=== PATIENT | male | born 1945 | race Caucasian/White ===

== ENCOUNTER 2025-07-06 23:31 | Inpatient (IN) | payer BC, MEDICARE, SELFPAY ==
[2025-07-06] MEDS ORDERED: Acetaminophen 325 MG TAB PO PRN (23:45)
[2025-07-06] MEDS ORDERED: Senokot S 8.6-50 MG TAB PO PRN (23:45)
[2025-07-06] MEDS ORDERED: Calcium Carbonate 500 MG ChewTAB PO PRN (23:45)
[2025-07-06] MEDS ORDERED: Guaifenesin DM 100-10/5 ML UDCUP PO PRN (23:45)
[2025-07-06 23:58] VITALS: BMI 27.0
[2025-07-07] MEDS ORDERED: Nitroglycerin 0.4 MG TAB (25 Tab Bottle) SL PRN (01:13)
[2025-07-07] MEDS: ALPRAZolam 0.25 MG TAB PO PRN (01:51)
[2025-07-07 06:18] LABS: ALT (SGPT) 20 U/L (Less than 45); AST (SGOT) 28 U/L (11-34); Albumin 3.4 g/dL (3.1-4.5); Alkaline Phosphatase 56 U/L (40-110); Anion Gap 14 mmol/L (10-20); BUN (Urea Nitrogen) 17 mg/dL (8.4-25.7); Bilirubin, Total 0.7 mg/dL (0.3-1.2); Calc. Creatinine Clearance 76 mL/min (70-130); Calcium 8.6 mg/dL (7.8-10.44); Carbon Dioxide 21 mmol/L (23-31); Chloride 104 mmol/L (98-107); Globulin 2.8 g/dL (2.4-3.5); Glucose 92 mg/dL (83-110); Potassium 4.2 mmol/L (3.5-5.1); Sodium 135 mmol/L (136-145)
[2025-07-07 06:21] LABS: #Basophils 0.04 10x3/uL (0.0-0.2); #Eosinophils 0.14 10x3/uL (0.0-0.5); #Monocytes 1.34 10x3/uL (0.0-1.1); #Neutrophils 8.29 10x3/uL (1.5-8.4); %Basophils 0.3 % (0.0-2.0); %Eosinophils 1.2 % (0.0-6.0); %Lymphocytes 13.9 % (18.0-47.0); %Monocytes 11.7 % (0.0-10.0); %Neutrophils 72.5 % (40.0-75.0); Hematocrit 42.1 % (38.8-50.0); Hemoglobin 14.5 g/dL (13.5-17.5); Mean Corpuscular Hemoglobin 33.8 pg (27.0-33.0); Mean Corpuscular Volume 98.1 fL (81.2-95.1); Platelet Count 207 10x3/uL (150-450); Red Blood Cell (RBC) Count 4.29 10x6/uL (4.32-5.72); White Blood Cell (WBC) Count 11.45 10x3/uL (3.5-10.5)
[2025-07-07 06:36] LABS: Troponin I 0.024 ng/mL (< 0.028)
[2025-07-07] MEDS: Aspirin 81 mg Enteric Coated Tablet PO SCH (08:56)
[2025-07-07] MEDS: Magnesium Oxide 400 MG TAB PO SCH (08:56)
[2025-07-07] MEDS: CO Q-10 CAPSULE 50 MG PO SCH (08:56)
[2025-07-07] MEDS: Pantoprazole 40 MG VIAL IVP SCH (08:58)
[2025-07-07] MEDS ORDERED: SIROLIMUS 1 MG PO SCH (09:00)
[2025-07-07] MEDS ORDERED: Enoxaparin 40 MG (0.4 mL) SYRINGE SC SCH (09:00)
[2025-07-07] MEDS ORDERED: Bupivacaine/Epinephrine 0.25% 30 ML VIAL ONE (13:19)
[2025-07-07] MEDS ORDERED: CEFAZOLIN 2 GM VIAL ONE (13:28)
[2025-07-07] MEDS ORDERED: PROPOFOL 20 ML ONE (13:30)
[2025-07-07] MEDS ORDERED: Rocuronium Bromide 10 MG/ML (10ML VIAL) ONE (13:30)
[2025-07-07] MEDS ORDERED: SUGAMMADEX SODIUM 200 MG/2 ML VIAL ONE ×2 (13:44→14:42)
[2025-07-07] MEDS ORDERED: Ondansetron PF 4 MG/2 ML Vial ONE ×2 (13:44→14:42)
[2025-07-07] MEDS ORDERED: PHENYLEPHRINE-NS 100 MCG/ML 10 ML SYRINGE ONE (14:02)
[2025-07-07] MEDS ORDERED: HYDROmorphone 0.5 MG/0.5 ML SYRINGE ONE (15:48)
[2025-07-07] MEDS: Ondansetron PF 4 MG/2 ML Vial IVP PRN (16:23)
[2025-07-07] MEDS: Primidone 50 MG TAB PO SCH (17:54)
[2025-07-07] MEDS: Losartan 50 MG TAB PO SCH (20:47)
[2025-07-07] MEDS: Enoxaparin 40 MG (0.4 mL) SYRINGE SC SCH (20:48)
[2025-07-07] MEDS: Senokot S 8.6-50 MG TAB PO SCH (21:00)
[2025-07-07] MEDS: Acetaminophen 500 MG TAB PO SCH (22:39)
[2025-07-08 05:11] LABS: Hematocrit 39.1 % (38.8-50.0); Hemoglobin 13.8 g/dL (13.5-17.5); Mean Corpuscular Hemoglobin 34.8 pg (27.0-33.0); Mean Corpuscular Volume 98.7 fL (81.2-95.1); Platelet Count 193 10x3/uL (150-450); Red Blood Cell (RBC) Count 3.96 10x6/uL (4.32-5.72); White Blood Cell (WBC) Count 14.89 10x3/uL (3.5-10.5)
[2025-07-08 05:13] LABS: MDiff Complete? YES; Platelet Adequacy Comment Appears Adequate; RBC Morphology Within Normal Limits
[2025-07-08 05:23] LABS: Anion Gap 13 mmol/L (10-20); BUN (Urea Nitrogen) 20 mg/dL (8.4-25.7); Calc. Creatinine Clearance 60 mL/min (70-130); Calcium 8.2 mg/dL (7.8-10.44); Carbon Dioxide 23 mmol/L (23-31); Chloride 103 mmol/L (98-107); Glucose 105 mg/dL (83-110); Magnesium 1.7 mg/dL (1.6-2.6); Potassium 4.5 mmol/L (3.5-5.1); Sodium 134 mmol/L (136-145)
[2025-07-08] MEDS: oxyCODONE 5 MG TAB PO PRN (11:17)
[2025-07-08 13:30] LABS: Anion Gap 11 mmol/L (10-20); BUN (Urea Nitrogen) 24 mg/dL (8.4-25.7); Calc. Creatinine Clearance 58 mL/min (70-130); Calcium 8.1 mg/dL (7.8-10.44); Carbon Dioxide 21 mmol/L (23-31); Chloride 101 mmol/L (98-107); Glucose 90 mg/dL (83-110); Potassium 4.4 mmol/L (3.5-5.1); Sodium 129 mmol/L (136-145)
[2025-07-08] MEDS: Ketorolac Tromethamine 30 MG (1 mL) VIAL IVP PRN (16:37)
[2025-07-08] MEDS: HYDROcodone/Acetaminophen 5/325 mg Tablet PO PRN (20:13)
[2025-07-08] MEDS: Magnesium 2 GM/50 ML(in water) 2 GM in Premix 1 BAG IVPB SCH (20:15)
[2025-07-09] MEDS: Pantoprazole 40 MG DR.TAB PO SCH (08:51)
[2025-07-09 11:35] LABS: Anion Gap 13 mmol/L (10-20); BUN (Urea Nitrogen) 21 mg/dL (8.4-25.7); Calc. Creatinine Clearance 68 mL/min (70-130); Calcium 8.6 mg/dL (7.8-10.44); Carbon Dioxide 24 mmol/L (23-31); Chloride 97 mmol/L (98-107); Glucose 111 mg/dL (83-110); Potassium 4.5 mmol/L (3.5-5.1); Sodium 129 mmol/L (136-145)
[2025-07-09 16:22] VITALS: BP 124/75; TEMP 98.1
== END 2025-07-09 16:25 | disposition home or self-care (01) | DRG 418 ==
LOC: CSHTELE 23:39
PROVIDERS: ADMIT Student in an Organized Health Care Education/Training Program; ATTEND Internal Medicine
PROC: 0FT44ZZ Resection of Gallbladder, Percutaneous Endoscopic Approach (ICD-10-PCS; principal; 2025-07-07)
PROC: 8E0W4CZ Robotic Assisted Procedure of Trunk Region, Percutaneous Endoscopic Approach (ICD-10-PCS; 2025-07-07)
PROC: 3E03329 Introduction of Other Anti-infective into Peripheral Vein, Percutaneous Approach (ICD-10-PCS; 2025-07-07)
DX: K81.0 Acute cholecystitis (principal); E87.1 Hypo-osmolality and hyponatremia; E87.20 Acidosis, unspecified; N17.9 Acute kidney failure, unspecified; I47.20 Ventricular tachycardia, unspecified; Z88.2 Allergy status to sulfonamides; I10 Essential (primary) hypertension; E78.5 Hyperlipidemia, unspecified; E03.9 Hypothyroidism, unspecified; I25.10 Atherosclerotic heart disease of native coronary artery without angina pectoris; Z98.890 Other specified postprocedural states; K82.A1 Gangrene of gallbladder in cholecystitis; N18.2 Chronic kidney disease, stage 2 (mild); Z79.899 Other long term (current) drug therapy
CPT/HCPCS: 36415; 78227; 80048; 80053; 83735; 84484; 85025; 88304; A9537; C1889; J1100; J1171; J1650; J1885; J2470; J2543; J2704; J3475; J7030; J7120; S2900